=== PATIENT | female | born 2000 | race Caucasian/White ===

== ENCOUNTER 2024-11-03 16:51 | Inpatient (IN) | payer MEDICAID, SELFPAY ==
[2024-11-03 17:25] VITALS: BP 120/58; PULSE 88; RESP 16; TEMP 36.4; O2SAT 98
--- NOTE | 2024-11-03 17:58 | PC.ADMIT ---
Nursing admission note: 24 year old female DX: Unspecified depressive disorder. Signed conditional voluntary for admission. Referred for admission by [facility]. Patient was brought into [facility] via ambulance from her workplace due to expressed suicidal ideation with plan to jump off the second floor warehouse. Patient reports she sent a suicide not via text to her brother and friend, HR was notified, ambulance and police arrived to work place. Patient A+O x4. Engaged easily, calm and cooperative with admission process. Presents with good eye contact, dressed in hospital attire. Reports mood is depressed, denies SI/HI plan or intent at this time. Agrees to seek staff support as needed. Affect congruent. Reports loss of cat 3 weeks ago contributed to increased depression. Patient reports avolition, anergia. Difficulty with concentration and focus. Feels tired and drained . Periods of increased anxiety, states she will at times get hives. Thoughts clear, linear and organized. Denies perceptual disturbances, denies A/V hallucinations, no overt psychosis or expressed delusions. Speech normal rate, tone, prosody. Denies sleep or appetite disturbances. Goals for admission include establishing providers, medication evaluation. Patient reports social use of vape, declines NRT at this time. Occasional use of alcohol and cannabis. TOX screen negative. NKA. Denies acute medical problems. Patient oriented to unit, placed on unit safety checks. See nursing assessment/crisis evaluation for further details.
[2024-11-03 18:14] VITALS: BMI 40.3
[2024-11-03 20:00] VITALS: BP 138/65; PULSE 88; RESP 18; TEMP 36.5; O2SAT 100
[2024-11-03] MEDS: hydrOXYzine HCL 25 MG TABLET PO (21:05)
[2024-11-03] MEDS: traZODone HCL 50 MG TABLET PO (21:05)
[2024-11-04 07:20] VITALS: BP 139/71; PULSE 64; RESP 14; TEMP 36.4; O2SAT 98
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
[2024-11-04] MEDS: Escitalopram Oxalate 5 MG TABLET PO (16:33)
[2024-11-04 19:58] VITALS: RESP 16
[2024-11-05 07:00] VITALS: BMI 40.2
[2024-11-05 07:54] VITALS: BP 130/70; PULSE 88; RESP 16; TEMP 36.6; O2SAT 98
[2024-11-05] MEDS: Escitalopram Oxalate 5 MG TABLET PO (08:14)
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
[2024-11-05 19:24] VITALS: BP 107/61; PULSE 81; RESP 16; TEMP 36.6; O2SAT 98
[2024-11-05] MEDS: ARIPiprazole 2 MG TABLET PO (20:39)
[2024-11-05] MEDS: hydrOXYzine HCL 25 MG TABLET PO (20:45)
[2024-11-05] MEDS: traZODone HCL 50 MG TABLET PO (20:45)
[2024-11-06 07:49] VITALS: BP 128/85; PULSE 94; RESP 18; TEMP 36.4; O2SAT 97
[2024-11-06] MEDS: Escitalopram Oxalate 5 MG TABLET PO (08:07)
== END 2024-11-06 11:59 | disposition home or self-care (01) | DRG 754 ==
PROVIDERS: Admitting Provider Psychiatry & Neurology Psychiatry; Visit Provider Psychiatry & Neurology Psychiatry
DX: F32.A Depression, unspecified (principal); R45.851 Suicidal ideations; F84.0 Autistic disorder; F17.210 Nicotine dependence, cigarettes, uncomplicated; Z71.6 Tobacco abuse counseling; Z62.810 Personal history of physical and sexual abuse in childhood; Z62.811 Personal history of psychological abuse in childhood; Z79.899 Other long term (current) drug therapy

== ENCOUNTER → 2024-11-03 16:51 | Outpatient (BNV) | payer OTHER, SELFPAY | PROVIDERS: Admitting Provider Psychiatry & Neurology Psychiatry; Visit Provider Psychiatry & Neurology Psychiatry | DX: F32.2 Major depressive disorder, single episode, severe without psychotic features (principal) | CPT/HCPCS: 99233 ==

== ENCOUNTER → 2024-11-03 16:51 | Outpatient (BNV) | payer MEDICAID, SELFPAY | PROVIDERS: Admitting Provider Psychiatry & Neurology Psychiatry; Visit Provider Nurse Practitioner Family | DX: F32.A Depression, unspecified (principal) | CPT/HCPCS: 99222 ==